=== PATIENT | female | born 1995 | race Caucasian/White ===

== ENCOUNTER 2019-12-30 10:26 | Outpatient (CLI) | payer OTHER, SELFPAY ==
--- NOTE | ~2019-12-30 | CT_ITS ---
EXAMINATION: CT chest w con DATE: 12/30/2019 11:46 INDICATION: Chest wall pain TECHNIQUE: Transaxial computed tomographic images of the chest were obtained after the administration of 75 cc of Omnipaque 350 intravenous contrast. The dose-length product (DLP) was 156.22 mGy-cm. Ite rative reconstruction was used. COMPARISON: None FINDINGS: The lungs are free of acute opacities. There is no pleural effusion or pneumothorax. No pat hologically enlarged thoracic lymph nodes are identified. The heart size is normal. The visualized os seous structures are unremarkable. The visualized portions of the upper abdominal organs are normal. IMPRESSION: 1. No CT correlate for the patient's symptoms. Reviewed, dictated and finalized at location A.
== END 2019-12-30 10:27 | disposition home or self-care (01) ==
LOC: ANHIMG 10:34
PROVIDERS: PCP Nurse Practitioner; Visit Provider Family Medicine
DX: R07.89 Other chest pain (principal)
CPT/HCPCS: 71260; Q9967